=== PATIENT | female | born 1940 | race Caucasian/White ===

== ENCOUNTER 2019-10-30 06:00 | Day surgery (SDC) | payer MEDICARE, SELFPAY ==
[2019-10-28 13:56] VITALS: BMI 24.3
[2019-10-30 06:21] VITALS: BP 128/72; PULSE 73; RESP 18; TEMP 36.6; O2SAT 98
[2019-10-30] MEDS: sodium chloride 0.9% 1,000 ML 30 ML IV (06:24)
--- NOTE | 2019-10-30 06:33 | ANES.PREANE2 ---
Pre-Anesthetic Assessment Pre-Anesthetic Assessment: Height/Weight: Height 1.57 m Weight 60.328 kg Temp Pulse Resp BP Pulse Ox 98 F 73 18 128/72 98 10/30/19 06:21 10/30/19 06:21 10/30/19 06:21 10/30/19 06:21 10/30/19 06:21 Preop Diagnosis: colon polyps Proposed Procedure: Operation Date: 10/30/19 07:40 Proposed Procedures p Colonoscopy 46640 Z86.010(Not Applicable) - Ty Cain MD Familial anesthetic complications: no Was Beta Betty taken within 24 hours: N/A Last intake: Intake Last Liquid Date 09/29/19 Last Liquid Time 22:00 Last Solid Date 11/28/19 Last Solid Time 23:59 Last Intake: 12:00 Social: Social History: No alcohol and No tobacco Exam: Pre-Anes Outpt Exam: alert, oriented x 3, clear to auscultation bilaterally and regular rate & rhythm Airway: Submandibular: WNL Cervical ROM: WNL Dentition: False History/ROS: No significant history except as noted CV/HEM: CV/HEM: HTN Metabolic: Metabolic: Hyperlipidemia Anesthetic Plan: ASA status: 2 Anesthesia: Anesthesia Evaluation and MAC Risk of > 500 ml blood loss (7ml/kg in children): No Meds/Allergies Current Medications: Current Medications Generic Name Dose Route Start Last Admin Trade Name Freq PRN Reason Stop Dose Admin Sodium Chloride 1,000 mls @ 30 ml s/hr 10/30/19 06:30 10/30/19 06:24 Sodium Chloride 0.9% IV 30 mls/hr .Q24H OMI Administration PFSH Anesthesia PFSH: Social History Smoking and tobacco status: never smoked Alcohol intake: never History of recent travel: No Data Anesthesia Cardiac Studies: No Data to Display
--- NOTE | 2019-10-30 07:50 | P.HP_ITS ---
Same Day Surgery H&P Indication for Procedure/HPI DATE OF PROCEDURE: October 30, 2019 CHIEF COMPLAINT/INDICATIONFOR SURGICAL PROCEDURE: Family history of colon cancer, history of colon polyps PREOP DIAGNOSIS: colon polyps PLANNED PROCEDRUE: Operation Date: 10/30/19 07:40 Proposed Procedures p Colonoscopy 56647 Z86.010(Not Applicable) - Ty Cain MD Medications/Allergies* Home Medications Medication Instructions Recorded Confirmed Type amlodipine 2.5 mg tablet 1.25 mg PO BEDTIME 09/10/19 10/30/19 History levothyroxine 25 mcg tablet 25 mcg PO DAILY 09/10/19 10/29/19 History pravastatin 40 mg tablet 40 mg PO DAILY 09/10/19 10/30/19 History losartan 50 mg PO BEDTIME 10/29/19 10/29/19 History Allergies/Adverse Reactions Allergy/AdvReac Type Severity Reaction Status Date / Time No Known Allergies Allergy Verified 09/12/19 10:30 Current Medications: Generic Name Dose Route Start Last Admin Trade Name Freq PRN Reason Stop Dose Admin Sodium Chloride 1,000 mls @ 30 mls/hr 10/30/19 06:30 10/30/19 06:24 Sodium Chloride 0.9% IV 30 mls/hr .Q24H OMI Administration Pertinent History/Comorbid Conditions* Medical History (Updated 09/12/19 @ 10:58 by Ty Cain MD) Hiatal hernia History of colon polyps SESSILE POLYPS-2014 Hyperlipidemia Hypertension Surgical History (Updated 09/12/19 @ 10:58 by Ty Cain MD) History of arthroplasty of finger of left hand History of colonoscopy (~2014) History of esophagogastroduodenoscopy (EGD) (~2014) S/P lumpectomy, right breast Status post laser cataract surgery of both eyes Family History (Updated 09/12/19 @ 10:34 by CARLO Villegas) Denies family history of Anesthesia complication Bleeding disorder Social History Smoking and tobacco status: never smoked Alcohol intake: never History of recent travel: No Pertinent Exam Findings alert and oriented x 3 Recommendations Surgery/Procedure today Coding Level of Care Code Acute Special Delivery Messenger for Chg Annemarie
[2019-10-30 08:37] VITALS: BP 109/63; PULSE 64; RESP 16; TEMP 36.1; O2SAT 100
[2019-10-30 08:55] VITALS: BP 107/73; PULSE 73; RESP 18; O2SAT 99
== END 2019-10-30 09:09 | disposition home or self-care (01) ==
PROVIDERS: PCP Family Medicine; Visit Provider Surgery
PROC: 0DJD8ZZ Inspection of Lower Intestinal Tract, Via Natural or Artificial Opening Endoscopic (ICD-10-PCS; CPT 45378; principal; 2019-10-30 07:40)
DX: D12.3 Benign neoplasm of transverse colon (principal); K57.30 Diverticulosis of large intestine without perforation or abscess without bleeding; K64.8 Other hemorrhoids; Z86.010 Personal history of colon polyps; Z80.0 Family history of malignant neoplasm of digestive organs; I10 Essential (primary) hypertension; E78.5 Hyperlipidemia, unspecified
CPT/HCPCS: 45380; 12345; 88305; J2704; J7030

== ENCOUNTER 2019-11-14 13:03 | Outpatient (CLI) | payer MEDICARE, SELFPAY ==
--- NOTE | 2019-11-14 18:31 | ONC CON_ITS ---
Dr. Matta New Patient Note Patient: Anjelica Newell V Unit #: [id number]: 1940 Dicatated By: Jun Matta M.D.Date of Visit: November 14, 2019 Onc MED New Patient/Consult Referring Physician: Rayne Schrader N.P. Chief Complaint: Monoclonal gammopathy. History of Present Illness: This is an 79 year-old woman with IgG lambda monoclonal gammopathy. This patient has hypertension, hyperlipidemia, and hypothyroidism. She has been followed for thyroid nodules. She has been in good general health. She has been followed by Dr. Schreiber. Her routine laboratory studies from 07/24/2019 included a comprehensive metabolic profile which showed an elevated total protein of 8.2 g/dL with a calculated serum globulin which was also slightly elevated at 4.3 g/dL. The remainder of the studies were unremarkable. Her renal function was normal with BUN 13 and creatinine 0.85 mg/dL. The bilirubin and liver enzymes also were normal. The albumin was normal at 3.9 g/dL. Her CBC showed normal hemoglobin at 13.5 g with hematocrit 43%. The white blood cell count was 7100 and the platelet count was 304,000. Her further laboratory studies on 08/10/2019 included a protein electrophoresis which showed a restricted protein migration in the gamma region. Amino fixation showed a faint IgG lambda suggestive of a specific immune response or an early monoclonal protein. The serum free light chain assay showed free lambda light chain lambda in the high normal range at 2.59 mg/dL with free kappa light chain slightly elevated at 2.65mg/dL and normal kappa/lambda ratio at 1.02. She says she is feeling fine. She has normal energy and normal activity tolerance. ECOG score is 0. Her appetite is good and her weight is stable. She has no fever or night sweats. She sometimes has sinus drainage and she has occasional cough associated with it. She does not complain of shortness of breath or chest pain. She has some heartburn associated with hiatal hernia. She has no other GI or complaints. She recently had a negative screening colonoscopy. She has some arthritis pain in her knees, but not bad. She has no other joint or bone pain. She has occasional headache. She has restless leg syndrome, but she has no focal neurologic symptoms. Past Medical History: Her medical history includes hiatal hernia/GERD, hyperlipidemia, hypertension, hypothyroidism, and restless leg syndrome. She has been followed for thyroid nodules. Past Surgical History: She had a negative screening colonoscopy on 10/30/2019. Her other surgical/procedural history includes bilateral cataract excisions, excision of benign right breast cyst, endometrial sampling in 2019, and EGD and colonoscopy in 2014. Medications: amLODIPine Besylate 0.5 Tablet (of 2.5 mg) Oral daily, Levothyroxine Sodium 1 Tablet (of 25 mcg) Oral daily, Losartan Potassium 0.5 - 1.5 Tablet (of 50 mg) Oral daily, Pravastatin Sodium 1 Tablet (of 40 mg) Oral at bedtime Allergies: Cephalosporins Social History: Ms. Newell is and she is retired. She is a non-smoker. She does not drink alcohol. Family History: Father had heart disease and at age 75. Mother with an aneurysm at age 95. One brother has colon cancer, another has liver cancer, and another has lung cancer. A sister also has colon cancer and 1 sister with myelodysplasia. Review Of Symptoms: Constitutional - She is feeling fine. She has normal energy and normal activity tolerance. Appetite is good and weight is stable. No fever, chills, hot flashes, or night sweats. ECOG score is 0, Eyes - No change in vision, ENMT - No hearing loss or tinnitus. She sometimes has sinus drainage. No mouth sores. No sore throat or difficulty swallowing, Hematologic/Lymphatic - No abnormal bruising or bleeding, Respiratory - No shortness of breath. She has occasional cough, attributable to sinus drainage. No pleuritic pain or hemoptysis, Cardiovascular - No angina pain. No palpitations, Gastrointestinal - No nausea or vomiting. She has heartburn associated with a hiatal hernia. She manages it adequately with Tums. No diarrhea or constipation. No blood in the stool or black stools. She recently had a negative screening colonoscopy, Genitourinary (F) - No dysuria or hematuria. No urinary frequency, but she reports having nocturia x 3. No urgency or incontinence, Musculoskeletal - She has some arthritis in her knees, but not bad. She has no other joint or bone pain, Integumentary - No skin rash or other skin problems, Neurologic - She occasionally has headache. No dizziness. No numbness/paresthesias or other focal neurologic symptoms, Psychiatric - No anxiety or depression. She has restless leg syndrome, and she has some difficulty sleeping. Vital Signs: Performed on November 14, 2019 13:36: 0, 24.36, 1.61 sq.m, 62.00 in, 98 %, 72 /min, 18 /min, 147/58 mm(hg) (HIGH), 98.8 F, and 133.2 lbs (HIGH). Physical Examination: Constitutional - She appears to be in good general health, Eyes - Sclerae nonicteric. Conjunctivae clear, ENMT - No lesions noted in the oral cavity, Neck - No mass or thyromegaly, Hematologic/Lymphatic - No cervical, clavicular, or axillary adenopathy, Respiratory - Lungs are clear with good air movement bilaterally, Cardiovascular - Heart rhythm is regular. There is no murmur, gallop, or rub noted, Abdomen - Soft and non-tender. Liver and spleen are not enlarged. There is no abdominal mass or ascites noted and there is no inguinal adenopathy, Back/Spine - No spine or CVA tenderness noted, Extremities - No edema. Posterior tibial pulses are palpable bilaterally, Integumentary - No rashes. No suspicious skin lesions noted, Neurologic - No focal neurologic deficits noted. Impression: 1. Patient with low level IgG lambda monoclonal protein. This appears to have been too small to quantitate. 2. She does not appear to be symptomatic with it. Her other medical illnesses include: 3. Hypertension. 4. Hyperlipidemia. 5. Hypothyroidism. 6. Hiatal hernia/GERD. 7. Restless leg syndrome. 8. She has been followed for thyroid nodules. Plan: The laboratory findings and clinical implications were reviewed with the patient. She appears to have a very low level IgG lambda monoclonal gammopathy. The clinical significance is uncertain. She does not appear to be symptomatic with it. She will be scheduled to come in next week for additional laboratory studies to include CBC, comprehensive metabolic profile, sed rate, serum protein electrophoresis with immunofixation, and quantitative immunoglobulin levels. I also will have her bring in a 24-hour urine for monoclonal protein excretion. If she is confirmed to have monoclonal gammopathy, she will then be scheduled for a skeletal survey. She will have further evaluation as indicated. However, in the setting of an asymptomatic low level monoclonal gammopathy, she will most likely just be followed with observation/expectant management. Signed By: Jun Matta M.D. <<Signature on File>>
== END 2019-11-14 13:04 | disposition home or self-care (01) ==
LOC: ONCMED 13:07
PROVIDERS: PCP Family Medicine; Referring Provider Nurse Practitioner Family; Visit Provider Internal Medicine Medical Oncology
DX: D47.2 Monoclonal gammopathy (principal); I10 Essential (primary) hypertension; E78.5 Hyperlipidemia, unspecified; E03.9 Hypothyroidism, unspecified; K44.9 Diaphragmatic hernia without obstruction or gangrene; K21.9 Gastro-esophageal reflux disease without esophagitis; G25.81 Restless legs syndrome; E04.2 Nontoxic multinodular goiter
CPT/HCPCS: 99204

== ENCOUNTER 2019-11-18 08:40 | Outpatient (CLI) | payer MEDICARE, SELFPAY ==
[2019-11-18 09:10] LABS: Basophils % 0.7 %; Eosinophils % 0.4 %; Hematocrit 36.6 % (37.0-47.0); Hemoglobin 11.7 g/dL (11.5-15.3); Lymphocytes # 1.3 10^3/uL (0.8-4.8); Lymphocytes % 23.6 %; Mean Corpuscular Hemoglobin 31.3 pg (28.0-34.0); Mean Corpuscular Volume 97.9 fL (81-99); Mean Platelet Volume 9.7 fL (7.4-10.4); Monocytes # 0.3 10^3/uL (0.2-0.9); Monocytes % 4.8 %; Neutrophils # 3.9 10^3/uL (1.8-7.7); Neutrophils % 70.3 %; Nucleated Red Blood Cells % 0 %; Platelet Count 244 10^3/cmm (130-400); Red Blood Count 3.74 10^6/uL (4.1-5.3); Red Cell Distribution Width 13.3 % (12.1-15.1); White Blood Count 5.5 10^3/uL (4.0-10.0)
[2019-11-18 09:26] LABS: Alanine Aminotransferase 14 U/L (0-33); Albumin Level 4.3 g/dL (3.5-5.2); Alkaline Phosphatase 48 IU/L (35-105); Anion Gap 14.5 (5-19); Aspartate Amino Transferase 19 U/L (0-32); Blood Urea Nitrogen 11 mg/dL (8-23); Calcium 9.3 mg/dL (8.5-10.5); Carbon Dioxide 25 mmol/L (22-29); Chloride 105 mmol/L (98-107); Globulin 2.5 g/dL (1.3-4.6); Glucose 119 mg/dL (65-115); Immunoglobulin IGA 229 mg/dL (70-400); Immunoglobulin IGG 955 mg/dL (700-1600); Immunoglobulin IGM 90 mg/dL (40-230); Osmolality Calculated 287 mOsm/kg (285-295); Potassium 4.5 mmol/L (3.5-5.1); Sodium 140 mmol/L (136-145); Total Bilirubin 0.4 mg/dL (0.15-1.2); Total Protein 6.8 g/dL (6.6-8.7)
[2019-11-18 10:28] LABS: Erythrocyte Sedimentation Rate 22 mm/hr (0-15)
[2019-11-19 10:57] LABS: PROTEIN, TOTAL 6.7 g/dL (6.1-8.1)
[2019-11-19 14:40] LABS: ABNORMAL PROTEIN BAND 1 0.1 g/dL (NONE DETECTED); ALBUMIN 4.1 g/dL (3.8-4.8); ALPHA 1 GLOBULIN 0.2 g/dL (0.2-0.3); ALPHA 2 GLOBULIN 0.7 g/dL (0.5-0.9); BETA 1 GLOBULIN 0.5 g/dL (0.4-0.6); BETA 2 GLOBULIN 0.4 g/dL (0.2-0.5); GAMMA GLOBULIN 0.9 g/dL (0.8-1.7)
[2019-11-19 15:37] LABS: CREATININE, 24 HOUR URINE 0.81 g/24 h (0.50-2.15); PROTEIN, TOTAL, 24 HR UR 96 mg/24 h (<150); Protein/Creatinine Ratio 0.119 (< OR = 0.114); Protein/Creatinine Ratio 119 mg/g creat (< OR = 114)
[2019-11-21 12:21] LABS: ALPHA-1-GLOBULINS 0 %; ALPHA-2-GLOBULINS 0 %; BETA GLOBULINS 0 %; GAMMA GLOBULINS 0 %
[2020-01-07 11:22] LABS: COLLECTION DURATION 24; URINE VOLUME 1925
== END 2019-11-18 08:41 | disposition home or self-care (01) ==
LOC: ONCMED 08:43
PROVIDERS: PCP Family Medicine; Visit Provider Internal Medicine Medical Oncology
DX: D47.2 Monoclonal gammopathy (principal)
CPT/HCPCS: 80053; 82040; 82784; 84155; 84165; 85025; 85651

== ENCOUNTER 2020-07-23 13:13 | Outpatient (CLI) | payer MEDICARE, SELFPAY ==
--- NOTE | 2020-07-23 13:24 | MM_ITS ---
WS: [id number] BILATERAL DIGITAL SCREENING MAMMOGRAPHY WITH CAD CLINICAL INFORMATION: SCREENING HISTORY: Screening mammogram. No current complaints. COMPARISON: TECHNIQUE: Bilateral CC and MLO views. FINDINGS: The breasts are composed of heterogeneous fibroglandular density tissue, which can limit the detectio n of small underlying mass lesions. No suspicious mass, asymmetry, calcifications, or architectural d istortion. No evidence of malignancy. Punctate calcifications. Vascular calcification. MM/[id number] IMPRESSION: BI-RADS: 2-Benign FOLLOW UP: 1 Year Follow-up Recommend return to annual screening mammography.
== END 2020-07-23 13:14 | disposition home or self-care (01) ==
LOC: RADSHAW 13:21
PROVIDERS: PCP Family Medicine; Visit Provider Nurse Practitioner Family
DX: Z12.31 Encounter for screening mammogram for malignant neoplasm of breast (principal)
CPT/HCPCS: 77067

== ENCOUNTER 2020-12-08 13:33 | Outpatient (CLI) | payer MEDICARE, SELFPAY ==
--- NOTE | 2020-12-08 13:41 | XR_ITS ---
WS: [id number] DEXA (DUAL ENERGY X-RAY ABSORPTIOMETRY) Bone mineral density was performed using a [employer] machine. HISTORY: AGE-RELATED OSTEOPOROSIS WITHOUT CURRENT PATHOLOGICAL FRACTURE COMPARISON: 03/01/2018 Lumbar spine BMD (L1-L4): 1.173 g/cm2 T score: -0.1 Z score: 1.9 Total hip BMD: Left: 1.042 g/cm2. T score: 0.3 Z score: 2.4 Right: 0.980 g/cm2. T score: -0.2 Z score: 1.9 10 year probability of a major osteoporotic fracture is 20%. Compared to the prior study from 03/01/2018. Lumbar spine bone mineral density has increased by 2.6%. Bilateral hips bone mineral density has increased by 2.6%. XR/XR DEXA axial skeleton* [id number] IMPRESSION: NORMAL BONE MINERAL DENSITY based upon the WHO classification for females. Sign ificant increase in bone mineral density since the prior study.
== END 2020-12-08 13:34 | disposition home or self-care (01) ==
PROVIDERS: PCP Family Medicine; Visit Provider Nurse Practitioner Family
DX: M81.0 Age-related osteoporosis without current pathological fracture (principal)
CPT/HCPCS: 77080

== ENCOUNTER 2021-10-31 07:09 | Outpatient (CLI) | payer MEDICARE, SELFPAY ==
--- NOTE | 2021-10-31 07:21 | MM_ITS ---
WS: [id number] SCREENING TOMOSYNTHESIS DIGITAL MAMMOGRAM WITH CAD HISTORY: Screening exam. COMPARISON: 04/13/2016, 03/01/2018 and 07/23/2020 Bilateral CC and MLO views submitted. Computer aided detection analyzed. Breast composition: The breasts are heterogeneously dense, which may obscure small masses. Round mass middle depth RIGHT breast near the 3:00 axis measures 6 mm. There is an associated calcification. Th is mass may have been present on prior studies but better visualized today due to tomosynthesis. The calcification has been present and does appear benign. MM/[place] [id number] IMPRESSION: BI-RADS: 0-Incomplete: Need additional imaging evaluation FOLLOW UP: Need Additional Imaging RIGHT breast ultrasound recommended. 6 mm mass with an associated calcification RIGHT breast 3:00.
== END 2021-10-31 07:10 | disposition home or self-care (01) ==
LOC: RADSHAW 07:11
PROVIDERS: PCP Nurse Practitioner Family; Visit Provider Nurse Practitioner Family
DX: Z12.31 Encounter for screening mammogram for malignant neoplasm of breast (principal)
CPT/HCPCS: 77063; 77067

== ENCOUNTER 2021-11-08 13:05 | Outpatient (CLI) | payer MEDICARE, SELFPAY ==
--- NOTE | 2021-11-08 13:18 | US_ITS ---
WS: [id number] ULTRASOUND RIGHT BREAST HISTORY: ABNORMAL MAMMOGRAM OF R BREAST COMPARISON: 07/23/2020 TECHNIQUE: 2-D and Doppler. At 4:00, 1 cm from the nipple is a hypoechoic mass with a single punctate calcification measuring 6 x 6 x 4 mm. This corresponds in size and location and appearance to the mammographic abnormality. No i ncreased vascularity. There are 2 adjacent cysts at 6:00 in the subareolar location. US/US breast RT limited* [id number] IMPRESSION: BI-RADS: 3-Probably Benign FOLLOW-UP: 6 Month Follow-up Recommend 6 month follow-up of probably benign 6 mm mass at 4:00, 1 cm from the nipple.
== END 2021-11-08 13:06 | disposition home or self-care (01) ==
PROVIDERS: PCP Nurse Practitioner Family; Visit Provider Nurse Practitioner Family
DX: R92.8 Other abnormal and inconclusive findings on diagnostic imaging of breast (principal); N63.14 Unspecified lump in the right breast, lower inner quadrant
CPT/HCPCS: 76642

== ENCOUNTER → 2023-01-09 08:37 | Outpatient (BNVA) | payer MEDICARE, SELFPAY | PROVIDERS: PCP Electrodiagnostic Medicine; Visit Provider Nurse Practitioner Family | DX: C44.311 Basal cell carcinoma of skin of nose (principal); D22.5 Melanocytic nevi of trunk; L85.3 Xerosis cutis; D69.2 Other nonthrombocytopenic purpura; L81.4 Other melanin hyperpigmentation; L57.8 Other skin changes due to chronic exposure to nonionizing radiation | CPT/HCPCS: 11102; 99213 ==

== ENCOUNTER → 2023-01-30 07:55 | Outpatient (BNVA) | payer MEDICARE, SELFPAY | PROVIDERS: PCP Electrodiagnostic Medicine; Visit Provider Dermatology | DX: C44.311 Basal cell carcinoma of skin of nose (principal) | CPT/HCPCS: 17311 ==

== ENCOUNTER → 2023-02-02 11:23 | Outpatient (BNVA) | payer MEDICARE, SELFPAY | PROVIDERS: PCP Electrodiagnostic Medicine; Visit Provider Dermatology | DX: C44.311 Basal cell carcinoma of skin of nose (principal) | CPT/HCPCS: 15260 ==

== ENCOUNTER → 2023-02-12 15:29 | Outpatient (BNVA) | payer MEDICARE, SELFPAY | PROVIDERS: PCP Electrodiagnostic Medicine; Visit Provider Dermatology | DX: Z48.02 Encounter for removal of sutures (principal) | CPT/HCPCS: 99212 ==

== ENCOUNTER → 2023-03-08 14:26 | Outpatient (BNVA) | payer MEDICARE, SELFPAY | PROVIDERS: PCP Electrodiagnostic Medicine; Visit Provider Dermatology | DX: L57.8 Other skin changes due to chronic exposure to nonionizing radiation (principal); Z85.828 Personal history of other malignant neoplasm of skin; Z48.817 Encounter for surgical aftercare following surgery on the skin and subcutaneous tissue; L81.4 Other melanin hyperpigmentation | CPT/HCPCS: 99213 ==

== ENCOUNTER 2023-03-29 16:10 | Emergency (ER) | payer MEDICARE, SELFPAY ==
[2023-03-29 16:15] VITALS: BP 185/72; PULSE 84; RESP 16; TEMP 36.6; O2SAT 97
--- NOTE | 2023-03-29 17:25 | XRR_ITS ---
PROCEDURE INFORMATION: Exam: XR Chest Exam date and time: 03/29/2023 5:46 PM Age: 82 years old Clinical indication: Cough; Additional info: Dyspnea/cough TECHNIQUE: Imaging protocol: Radiologic exam of the chest. Views: 1 view. COMPARISON: CR XR chest 1V [id number] 12/24/2017 11:25 AM FINDINGS: Lungs: Lungs are clear bilaterally. Pleural spaces: No pleural effusion. No pneumothorax. Heart/Mediastinum: Stable moderate enlargement of the cardiac silhouette. Mediastinal contours are unremarkable. Vasculature: Stable vascular calcifications in the aorta. Bones/joints: Unremarkable for age. XR/XR chest 1V portable [id number] IMPRESSION: 1. No acute cardiopulmonary process. 2. Incidental/nonacute findings are listed in the report.
--- NOTE | 2023-03-29 17:26 | ED_ITS ---
HPI - Headache General: Chief Complaint: Headache Stated Complaint: high bp Time Seen by Provider: 03/29/23 16:49 Source: patient Mode of arrival: ambulatory History of Present Illness: 82-year-old female presents emergency room complaining of elevated blood pressure and headache. She took her blood pressure medications last night she usually takes losartan. She also takes amlodipine she will he takes that occasionally though she tells me on her chart it is listed as 1.25 at at bedtime she took 1 pill last night and 1 this morning. Blood pressure was as high as 200 systolic she states at home. Blood pressure initially on arrival here is 180 5 repeat was 139 systolic. She denies difficulty speech swallowing vision gait or balance. No facial weakness or focal neurologic deficits she denies any chest pain. No recent medication changes. MD elicited complaint: headache Exacerbating factors: none Relieving factors: nothing Associated symptoms: Deny chest pain, confusion, cough, diaphoresis, eye pain, eye redness, fever(s), lightheadedness, loss of vision, malaise, nausea, neck stiffness, numbness, paresthesias, photophobia, pre-syncope, rash, seizures, short of breath, sound sensitivity, syncope, vomiting or weakness Treatments prior to arrival: none Review of Systems Const: Denies: fever(s), chills, fatigue, malaise or diaphoresis ENMT: Denies: throat pain, ear or mastoid pain, nasal discharge or nasal congestion Card: Denies: chest pain, lightheadedness, syncope or pre-syncope Resp: Denies: dyspnea, productive cough or non-productive cough GI: Denies: abdominal pain, nausea or vomiting : Denies: flank pain, difficulty voiding, dysuria, urinary frequency or urinary urgency Musc: Denies: neck pain or back pain Skin/Breast: Denies: rash Neuro: Reports: headache(s); Denies: confusion PFSH ED PFSH: Medical History Hiatal hernia History of colon polyps 2020: Tubular adenoma History of nonmelanoma skin cancer Hyperlipidemia Hypertension Surgical History History of arthroplasty of finger of left hand History of colonoscopy (10/30/19) Diverticulosis and 2 polyps transverse colon History of esophagogastroduodenoscopy (EGD) (~2014) S/P lumpectomy, right breast Status post laser cataract surgery of both eyes Family History Denies family history of Anesthesia complication Bleeding disorder Social History Smoking and tobacco status: never smoked Alcohol intake: never Substance/Drug Use: never Physical Exam 2 Const: GENERAL APPEARANCE: cooperative and comfortable ORIENTATION/CONSCIOUSNESS: Yes awake, Yes oriented to person, Yes oriented to place and Yes oriented to time HENMT: COMMON NORMALS: normocephalic, atraumatic and hearing grossly normal bilaterally HEAD & SCALP: normocephalic and atraumatic Eye: COMMON NORMALS: Equal, round and reactive pupils present, EOMs intact bilaterally, conjunctivae normal and no scleral icterus CONJUNCTIVA: Yes conjunctivae normal PUPIL: Yes Equal, round and reactive pupils present D IRECT OPHTHALMOSCOPY: No photophobia Resp: COMMON NORMALS: normal respiratory effort, No retractions, No use of accessory muscles and clear to auscultation bilaterally AUSCULTATION: clear to auscultation bilaterally Cardio: COMMON NORMALS: regular rate, regular rhythm and No murmurs present (Cardio) RATE: regular rate RHYTHM: regular rhythm GI: COMMON NORMALS: Soft to palpation and No hepatosplenomegaly present AUSCULTATION: Yes normoactive bowel sounds PALPATION: Yes Soft to palpation, No Tenderness to palpation present (GI), No Guarding due to palpation present (GI) and Yes No hepatosplenomegaly present Extremity: COMMON NORMALS: normal to inspection, capillary refill normal, no clubbing, cyanosis or edema, no calf tenderness and no pedal edema Neuro: SENSORIUM/ORIENTATION: Yes oriented to person, Yes oriented to place and Yes oriented to time Skin: COMMON NORMALS: no rashes or lesions noted GENERAL SKIN EXAM: no rashes or lesions noted Course Vital Signs: Vital signs: Vital Signs Temperature 97.9 F 03/29/23 16:15 Pulse Rate 69 03/29/23 17:40 Respiratory Rate 18 03/29/23 17:40 Blood Pressure 171/77 03/29/23 17:40 Pulse Oximetry 94 03/29/23 17:40 Oxygen Delivery Me thod Room Air 03/29/23 17:40 MDM - Headache Medical Decision Making Labs and EKG unremarkable. Chest x-ray no significant or acute changes. Blood pressure improved. Add metoprolol and increase amlodipine follow-up with primary care within the next week to reevaluate. Medical Records I reviewed the patient's medical records. Lab Data I reviewed the patient's lab results. 03/29/23 17:56 03/29/23 17:56 Laboratory Results WBC 7.27 10^3/uL (3.29-11.43) 03/29/23 17:56 RBC 4.23 10^6/uL (3.85-5.65) 03/29/23 17:56 Hgb 13.00 g/dL (11.27-16.99) 03/29/23 17:56 Hct 39.2 % (36-47) 03/29/23 17:56 MCV 92.7 fl (85-98) 03/29/23 17:56 MCH 30.7 pg (27-33) 03/29/23 17:56 MCHC 33.2 g/dL (30-55) 03/29/23 17:56 RDW 13.9 % (12.1-15.1) 03/29/23 17:56 Plt Count 259 10^3/cmm (157-399) 03/29/23 17:56 MPV 9.9 fL (7.4-10.4) 03/29/23 17:56 Neut % (Auto) 67.7 % 03/29/23 17:56 Lymph % (Auto) 26.0 % 03/29/23 17:56 Carlton % (Auto) 5.0 % 03/29/23 17:56 Eos % (Auto) 0.4 % 03/29/23 17:56 Baso % (Auto) 0.8 % 03/29/23 17:56 Neut # (Auto) 4.92 10^3/uL (1.8-7.7) 03/29/23 17:56 Lymph # (Auto) 1.9 10^3/uL (0.8-4.8) 03/29/23 17:56 Carlton # (Auto) 0.4 10^3/uL (0.2-0.9) 03/29/23 17:56 Eos # (Auto) 0.0 10^3/uL (0.0-0.8) 03/29/23 17:56 Baso # (Auto) 0.1 10^3/uL (0.0-0.1) 03/29/23 17:56 Nucleated RBC % (auto) 0 % 03/29/23 17:56 Nucleated RBCs # 0.0 /100WBC 03/29/23 17:56 XR interpretation done by ED provider, pending radiology final review Discharge Plan Discharge Patient Disposition: Home Clinical Impression: Headache, HTN (hypertension) Condition: Stable Prescriptions: New amlodipine 5 mg tablet 5 mg PO DAILY Qty: 30 0RF Toprol XL 25 mg tablet extended release 24 hr 12.5 mg PO DAILY Qty: 15 0RF Discontinued amlodipine 2.5 mg tablet 1.25 mg PO BEDTIME No Action pravastatin 40 mg tablet 40 mg PO DAILY levothyroxine [Levoxyl] 25 mcg tablet 25 mcg PO DAILY losartan 50 mg Tablet 50 mg PO BEDTIME Discharge Orders: Discharge ED (Routine); Ordered 03/29/23 Ordered By: Ochoa Adams Referrals: Gonzalo Jeter DO [Primary Care Provider] - Discharge Diet: Usual diet Discharge Activity: Increase activity as tolerated Patient Instructions: Opioid Safety, Pain Management Activity Restrictions/Additional Instructions: Continue the losartan daily. Add amlodipine 5 mg daily and metoprolol 12.5 mg daily follow-up with your doctor within the week. Coding Level of Care Code ED Public Relations Coordinator for Destini Sharpe
[2023-03-29 17:40] VITALS: BP 171/77; PULSE 69; RESP 18; O2SAT 94
[2023-03-29] MEDS: metoprolol tartrate 25 mg Tablet 12.5 MG PO (17:45)
[2023-03-29 18:03] LABS: Basophils # 0.1 10^3/uL (0.0-0.1); Basophils % 0.8 %; Eosinophils % 0.4 %; Hematocrit 39.2 % (36-47); Lymphocytes # 1.9 10^3/uL (0.8-4.8); Mean Corpuscular HGB Conc 33.2 g/dL (30-55); Mean Corpuscular Hemoglobin 30.7 pg (27-33); Mean Corpuscular Volume 92.7 fl (85-98); Mean Platelet Volume 9.9 fL (7.4-10.4); Monocytes # 0.4 10^3/uL (0.2-0.9); Neutrophils # 4.92 10^3/uL (1.8-7.7); Neutrophils % 67.7 %; Nucleated Red Blood Cells % 0 %; Platelet Count 259 10^3/cmm (157-399); Red Blood Count 4.23 10^6/uL (3.85-5.65); Red Cell Distribution Width 13.9 % (12.1-15.1); White Blood Count 7.27 10^3/uL (3.29-11.43)
[2023-03-29 18:26] LABS: Anion Gap 13.4 (5-19); Blood Urea Nitrogen 9 mg/dL (8-23); Calcium 9.7 mg/dL (8.5-10.5); Carbon Dioxide 25 mmol/L (22-29); Chloride 104 mmol/L (98-107); Glucose 99 mg/dL (65-115); Osmolality Calculated 285 mOsm/kg (285-295); Potassium 4.4 mmol/L (3.5-5.1); Sodium 138 mmol/L (136-145)
== END 2023-03-29 18:17 | disposition home or self-care (01) ==
PROVIDERS: Emergency Provider Family Medicine; PCP Electrodiagnostic Medicine
DX: R51.9 Headache, unspecified (principal); I10 Essential (primary) hypertension; E78.5 Hyperlipidemia, unspecified
CPT/HCPCS: 36415; 71045; 80048; 85025; 99284

== ENCOUNTER → 2023-06-07 14:13 | Outpatient (BNVA) | payer MEDICARE, SELFPAY | PROVIDERS: PCP Electrodiagnostic Medicine; Visit Provider Dermatology | DX: L57.0 Actinic keratosis (principal); L57.8 Other skin changes due to chronic exposure to nonionizing radiation; L82.1 Other seborrheic keratosis; Z85.828 Personal history of other malignant neoplasm of skin; D22.5 Melanocytic nevi of trunk | CPT/HCPCS: 17000; 99213 ==

== ENCOUNTER 2023-12-10 08:12 | Outpatient (CLI) | payer MEDICARE, SELFPAY ==
--- NOTE | 2023-12-10 08:17 | USCV_ITS ---
Anjelica Newell Age: 83 Gender: F : 1940 Exam Date: 12/10/2023 08:43 Ordering Phys: Gonzalo Jeter DO Technologist: Exam Location: [facility] [place]ication: sob murmur BP: 140 / 80 HR: 52 Rhythm: Sinus Technical Quality: Adequate MEASUREMENTS (Male / Female) Normal Values 2D ECHO LV Diastolic Diameter PLAX 3.7 cm 4.2 - 5.9 / 3.9 - 5.3 cm IVS Diastolic Thickness 1.0 cm 0.6 - 1.0 / 0.6 - 0.9 cm IVS Systolic Thickness 1.6 cm LVPW Diastolic Thickness 1.0 cm 0.6 - 1.0 / 0.6 - 0.9 cm LVPW Systolic Thickness 1.9 cm LVOT Diameter 2.1 cm LV Ejection Fraction 2D Teich 66.4 % LV Ejection Fraction MOD 2C 60.4 % LV Ejection Fraction 2C AL 58.9 % LA Diameter 2.6 cm RA Systolic Volume 4C AL 20.6 ml RA Systolic Volume 4C MOD 19.5 ml LA Sys Volume AL 43.3 cm cubed LA Sys Volume Index AL 26.8 cm cubed/m squared Aorta at Sinotubular Diameter 2.6 cm IVC Diameter 1.6 cm M-MODE LA Ao Ratio MM 1.2 AV Cusp Separation MM 2.1 cm DOPPLER AV Peak Velocity 169.0 cm/s LVOT Peak Velocity 102.0 cm/s AV Area Cont Eq vti 2.5 cm squared AV Area Cont Eq pk 2.0 cm squared MV Peak Velocity 108.0 cm/s MV Area PHT 2.8 cm squared Mitral E to A Ratio 1.0 TR Peak Velocity 286.0 cm/s TR Peak Gradient 32.7 mmHg TV Peak E Velocity 65.0 cm/s FINDINGS Left Ventricle Normal left ventricular cavity size. Normal left ventricular systolic function. No regional wall motion abnormalities. Left ventricular ejection fraction is estimated at 60 %. Grade I/IV diastolic dysfunction (abnormal relaxation filling pattern), normal to mildly elevated filling pressures. Right Ventricle The right ventricle is normal in size and function. Right Atrium The right atrium is normal in size. Left Atrium Moderately increased left atrial size. Mitral Valve Structurally normal mitral valve. No mitral valve stenosis. Trace mitral valve regurgitation. Aortic Valve Structurally normal aortic valve without significant sclerosis or stenosis. There is no aortic regurgitation. Tricuspid Valve Structurally normal tricuspid valve. Mild tricuspid valve regurgitation. Pulmonic Valve Structurally normal pulmonic valve without significant stenosis. There is no pulmonic regurgitation. Pericardium Normal pericardium without effusion. Aorta Normal ascending aorta dimension. IVC The inferior vena cava appears normal. CONCLUSIONS 1-Normal left ventricular cavity size. Normal left ventricular systolic function. No regional wall motion abnormalities. Left ventricular ejection fraction is estimated at 60 %. Grade I/IV diastolic dysfunction (abnormal relaxation filling pattern), normal to mildly elevated filling pressures. 2-Structurally normal tricuspid valve. Mild tricuspid valve regurgitation. 3-There is no pericardial effusion. 4-Right atrial pressure is around 5 mm of mercury. 5-There is no pericardial effusion. Andrey Casas MD (Electronically Signed) Final Date: 10 December 2023 20:11 S
== END 2023-12-10 08:13 | disposition home or self-care (01) ==
LOC: RAD 08:12
PROVIDERS: PCP Electrodiagnostic Medicine; Visit Provider Electrodiagnostic Medicine
DX: R01.1 Cardiac murmur, unspecified (principal); I50.30 Unspecified diastolic (congestive) heart failure
CPT/HCPCS: 93306

== ENCOUNTER 2024-08-18 20:31 | Observation (INO) | payer MEDICARE, SELFPAY ==
[2024-08-18 20:44] VITALS: BP 174/81; PULSE 76; RESP 16; TEMP 36.6; O2SAT 98
--- NOTE | 2024-08-18 20:52 | ECG_ITS ---
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
--- NOTE | 2024-08-18 20:55 | XRR_ITS ---
PROCEDURE INFORMATION: Exam: XR Chest Exam date and time: 08/18/2024 8:58 PM Age: 84 years old Clinical indication: Other: HTN; Additional info: Hypertension TECHNIQUE: Imaging protocol: Radiologic exam of the chest. Views: 1 view. COMPARISON: CR XR chest 1V portable [id number] 03/29/2023 5:46 PM FINDINGS: Lungs: Left lower lobe atelectasis. Pleural spaces: No pleural effusion or pneumothorax noted. Heart/Mediastinum: There is no cardiomegaly. Bones/joints: There is a minimally displaced fracture of the surgical neck of the left humeral head. There is no dislocation. Intraperitoneal space: There is no free intraperitoneal gas. XR/XR chest 1V portable [id number] IMPRESSION: 1. Minimally displaced fracture of the surgical neck of the left humeral head. No dislocation. 2. Left basal atelectasis.
--- NOTE | 2024-08-18 20:55 | CTR_ITS ---
PROCEDURE INFORMATION: Exam: CT Head Without Contrast Exam date and time: 08/18/2024 10:03 PM Age: 84 years old Clinical indication: Other: HTN with vision changes; Additional info: HTN, visual changes TECHNIQUE: Imaging protocol: Computed tomography of the head without contrast. Radiation optimization: All CT scans at this facility use at least one of these dose optimization techniques: automated exposure control; mA and/or kV adjustment per patient size (includes targeted exams where dose is matched to clinical indication); or iterative reconstruction. COMPARISON: l spine RADIATION DOSE METRICS: Total DLP (mGy-cm): 983.68 FINDINGS: Brain: No hemorrhage. Diffuse periventricular white matter disease indicating small vessel disease changes. No mass effect. No collections. Age related volume loss. 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 Cerebral ventricles: No ventriculomegaly. Paranasal sinuses: No significant air-fluid levels noted in the visualized sinuses. Mastoid air cells: Mastoid air cells are aerated with no effusions. Bones: No acute osseous abnormality. Soft tissues: Unremarkable. CT/CT head wo con* [id number] IMPRESSION: No acute intracranial abnormality.
[2024-08-18 21:52] LABS: Basophils # 0.1 10^3/uL (0.0-0.1); Basophils % 0.6 %; Eosinophils % 0.3 %; Hematocrit 37.1 % (36-47); Lymphocytes # 2.2 10^3/uL (0.8-4.8); Lymphocytes % 22.2 %; Mean Corpuscular HGB Conc 32.3 g/dL (30-55); Mean Corpuscular Hemoglobin 30.1 pg (27-33); Mean Platelet Volume 9.7 fL (7.4-10.4); Monocytes # 0.5 10^3/uL (0.2-0.9); Monocytes % 4.7 %; Neutrophils # 7.17 10^3/uL (1.8-7.7); Neutrophils % 71.9 %; Nucleated Red Blood Cells % 0 %; Platelet Count 229 10^3/cmm (157-399); Red Blood Count 3.99 10^6/uL (3.85-5.65); Red Cell Distribution Width 13.6 % (12.1-15.1); White Blood Count 9.97 10^3/uL (3.29-11.43)
[2024-08-18 22:13] LABS: Troponin(5th) Baseline 20 ng/L (0-10)
[2024-08-18 22:21] LABS: Alanine Aminotransferase 21 U/L (0-33); Albumin Level 4.2 g/dL (3.5-5.2); Alkaline Phosphatase 60 U/L (35-105); Aspartate Amino Transferase 25 U/L (0-32); Blood Urea Nitrogen 18 mg/dL (8-23); Calcium 9.5 mg/dL (8.5-10.5); Carbon Dioxide 21 mmol/L (22-29); Globulin 3.2 g/dL (1.3-4.6); Glucose 144 mg/dL (65-115); NT Pro B Type Natriuretic Pept 101 pg/mL (0-450); Total Bilirubin 0.4 mg/dL (0.15-1.2); Total Protein 7.4 g/dL (6.6-8.7)
[2024-08-18 22:54] LABS: Anion Gap 18.4 (5-19); Chloride 99 mmol/L (98-107); Osmolality Calculated 282 mOsm/kg (285-295); Potassium 4.4 mmol/L (3.5-5.1); Sodium 134 mmol/L (136-145)
[2024-08-19] VITALS (19 sets, daily range): BP systolic 130–165; BP diastolic 69–90; PULSE 53–93; RESP 12–65; TEMP 36.7; O2SAT 97–100
--- NOTE | 2024-08-19 00:44 | W.ED.GENADLT ---
HPI - General Adult General: Chief complaint: General Medical Stated complaint: Very High BP Time Seen by Provider: 08/19/24 00:41 History of Present Illness: 84-year-old female with a history of hypertension and hypothyroidism who presents to the emergency room with high blood pressure. She says she had checked it at home because she was not feeling right and it was over 200 systolic. She waited several hours and took some extra blood pressure medications and it was still up so she came to the emergency room. She says she just did not really feel right. Not really any chest pain. No nausea or vomiting. No altered mental status. She does say that her vision is been different in her left eye for 2 to 3 days now. Currently no gross visual field deficits. No neurologic deficits. No fevers. No cough Related Data Home Medications ?Medication ?Instructions ?Recorded ?Confirmed levothyroxine 25 mcg tablet 25 mcg PO DAILY 09/10/19 07/11/22 (Levoxyl) pravastatin 40 mg tablet 40 mg PO DAILY 09/10/19 07/11/22 losartan 50 mg tablet 50 mg PO BEDTIME 10/29/19 07/11/22 Previous Rx's ?Medication ?Instructions ?Recorded amlodipine 5 mg tablet 5 mg PO DAILY #30 tabs 03/29/23 metoprolol succinate 25 mg 12.5 mg (1/2 x 25 mg) PO DAILY #15 03/29/23 tablet,extended release 24 hr tabs (Toprol XL) Allergies Allergy/AdvReac Type Severity Reaction Status Date / Time No Known Allergies Allergy Verified 08/18/24 20:50 Review of Systems Narrative: Constitutional symptoms: Negative except as documented in HPI. Skin symptoms: Negative except as documented in HPI. Eye symptoms: Negative except as documented in HPI. ENMT symptoms: Negative except as documented in HPI. Respiratory symptoms: Negative except as documented in HPI. Cardiovascular symptoms: Negative except as documented in HPI. Gastrointestinal symptoms: Negative except as documented in HPI. Genitourinary symptoms: Negative except as documented in HPI. Musculoskeletal symptoms: Negative except as documented in HPI. Neurologic symptoms: Negative except as documented in HPI. Psychiatric symptoms: Negative except as documented in HPI. Endocrine symptoms: Negative except as documented in HPI. PFS ED PFSH: Medical History Hiatal hernia History of colon polyps 2020: Tubular adenoma History of nonmelanoma skin cancer Hyperlipidemia Hypertension Surgical History History of arthroplasty of finger of left hand History of colonoscopy (10/30/19) Diverticulosis and 2 polyps transverse colon History of esophagogastroduodenoscopy (EGD) (~2014) S/P lumpectomy, right breast Status post laser cataract surgery of both eyes Family History Denies family history of Anesthesia complication Bleeding disorder Social History Smoking and tobacco/nicotine status: never used tobacco/nicotine Alcohol intake: never Substance/Drug Use: never Physical Exam Narrative: EXAM NARRATIVE: General: Alert, no acute distress. Skin: Warm, dry. Head: Normocephalic, atraumatic. Neck: Supple, trachea midline. Eye: Extraocular movements are intact. Ears, nose, mouth and throat: mucosa moist. Cardiovascular: Regular, Normal peripheral perfusion. Respiratory: Lungs are clear to auscultation, respirations are non-labored, breath sounds are equal, Symmetrical chest wall expansion. Gastrointestinal: Soft, Nontender, Non distended Musculoskeletal: Normal ROM, no deformity. Neurological: Alert and oriented, No focal neurological deficit observed. Psychiatric: Cooperative, appropriate mood & affect. Course Vital Signs: Vital signs: Vital Signs Temperature 97.9 F 08/18/24 20:44 Pulse Rate 76 08/18/24 20:44 Respiratory Rate 16 08/18/24 20:44 Blood Pressure 174/81 08/18/24 20:44 Pulse Oximetry 98 08/18/24 20:44 Oxygen Delivery Me thod Room Air 08/18/24 20:44 MDM - General Adult Medical Decision Making Medical decision making: Differential diagnosis including but not limited to and based on the above HPI, review of systems and physical exam: Patient presents with hypertension: Essential hypertension. Stroke. acute coronary syndrome. kidney failure. congestive heart failure. anxiety Orders placed to evaluate differential diagnosis based on the above differential, HPI and physical exam EKG: Time 2051. Rate 68. Normal sinus rhythm, No ST-T changes, no ectopy, normal [place] & QRS intervals, This was reviewed and interpreted by myself the ER physician at 2057 Repeat EKG: Time 1:28 AM. Rate 67. Normal sinus rhythm, No ST-T changes, no ectopy, normal [place] & QRS intervals, This was reviewed and interpreted by myself the ER physician at 1:31 AM. No significant changes from EKG done previously today in the emergency room. CT head: No acute intracranial process. no intracranial hemorrhage, no evidence of infarct. no evidence of acute fracture.This was reviewed and interpreted by myself the ER physician. Chest x-ray: No acute process. No infiltrate. No pneumothorax. This was reviewed and interpreted by myself the emergency room physician. I also reviewed the radiology report. Lab Review: Laboratory results were reviewed and interpreted by myself the emergency room physician. No leukocytosis. No anemia. No renal failure. Urinalysis is negative for infection. Initial troponin was slightly above normal at 20. Repeat had a significant delta of 26 with a 2-hour troponin being 46. I reviewed the patient's medical record. Reexamination: Patient remained stable. No increased work of breathing. No altered mental status. No focal motor deficits. She continues to deny chest pain. Just the weird feeling she was having earlier. Blood pressure is down to 164/69 at admission. Consultation: I spoke with Dr. Xiong who is on-call for the hospitalist service who agrees to admission to observation. Assessment and plan: Elevated troponin Accelerated hypertension Vision changes -I discussed the patient with the hospitalist on-call who is admitting the patient. - Discussed findings and plan with patient. Answered any questions. - All laboratory values were reviewed and interpreted personally by myself, the ER physician - All imaging was reviewed and interpreted personally by myself, the ER physician. - Evaluation and treatment of this problem were appropriate in the emergency setting Lab Data 08/18/24 21:44 08/18/24 21:44 Radiology Impressions Chest X-Ray 08/18/24 20:55 IMPRESSION: 1. Minimally displaced fracture of the surgical neck of the left humeral head. No dislocation. 2. Left basal atelectasis. Head CT 08/18/24 20:55 IMPRESSION: No acute intracranial abnormality. Laboratory Results WBC 9.97 10^3/uL (3.29-11.43) 08/18/24 21:44 RBC 3.99 10^6/uL (3.85-5.65) 08/18/24 21:44 Hgb 12.00 g/dL (11.27-16.99) 08/18/24 21:44 Hct 37.1 % (36-47) 08/18/24 21:44 MCV 93.0 fl (85-98) 08/18/24 21:44 MCH 30.1 pg (27-33) 08/18/24 21:44 MCHC 32.3 g/dL (30-55) 08/18/24 21:44 RDW 13.6 % (12.1-15.1) 08/18/24 21:44 Plt Count 229 10^3/cmm (157-399) 08/18/24 21:44 MPV 9.7 fL (7.4-10.4) 08/18/24 21:44 Neut % (Auto) 71.9 % 08/18/24 21:44 Lymph % (Auto) 22.2 % 08/18/24 21:44 [place] % (Auto) 4.7 % 08/18/24 21:44 Eos % (Auto) 0.3 % 08/18/24 21:44 Baso % (Auto) 0.6 % 08/18/24:44 Neut # (Auto) 7.17 10^3/uL (1.8-7.7) 08/18/24:44 Lymph # (Auto) 2.2 10^3/uL (0.8-4.8) 08/18/24 21:44 [place] # (Auto) 0.5 10^3/uL (0.2-0.9) 08/18/24:44 Eos # (Auto) 0.0 10^3/uL (0.0-0.8) 08/18/24:44 Baso # (Auto) 0.1 10^3/uL (0.0-0.1) 08/18/24:44 Nucleated RBC % (auto) 0 % 08/18/24:44 Nucleated RBCs # 0.0 /100WBC 08/18/24 21:44 Sodium 134 mmol/L (136-145) L 08/18/24 21:44 Potassium 4.4 mmol/L (3.5-5.1) 08/18/24:44 Chloride 99 mmol/L (98-107) 08/18/24 21:44 Carbon Dioxide 21 mmol/L (22-29) L 08/18/24 21:44 Anion Gap 18.4 (5-19) 08/18/24 21:44 BUN 18 mg/dL (8-23) 08/18/24 21:44 Creatinine 0.9 mg/dL (0.5-0.9) 08/18/24 21:44 GFR Calculation Not Reportable 08/18/24 21:44 Glucose 144 mg/dL (65-115) H 08/18/24 21:44 Calculated Osmolality 282 mOsm/kg (285-295) L 08/18/24 21:44 Calcium 9.5 mg/dL (8.5-10.5) 08/18/24 21:44 Total Bilirubin 0.4 mg/dL (0.15-1.2) 08/18/24 21:44 AST 25 U/L (0-32) 08/18/24 21:44 ALT 21 U/L (0-33) 08/18/24 21:44 Alkaline Phosphatase 60 U/L (35-105) 08/18/24 21:44 Troponin T Baseline 20 ng/L (0-10) H 08/18/24 21:44 Troponin T 120 Minute 45.94 ng/L (0-10) H 08/19/24 00:26 Delta Troponin T 25.94 ABS# (0-10) H* 08/19/24 00:26 NT-Pro-B Natriuret Pep 101 pg/mL (0-450) 08/18/24 21:44 Total Protein 7.4 g/dL (6.6-8.7) 08/18/24 21:44 Albumin 4.2 g/dL (3.5-5.2) 08/18/24 21:44 Globulin 3.2 g/dL (1.3-4.6) 08/18/24 21:44 Urine Color Yellow (Yellow) 08/19/24 00:58 Urine Appearance Clear (CLEAR) 08/19/24 00:58 Urine pH 7.5 (5-7) 08/19/24 00:58 Ur Specific [place] 1.005 (1.005-1.030) 08/19/24 00:58 Urine Protein Negative (Negative) 08/19/24 00:58 Urine Glucose (UA) Negative (Normal) 08/19/24 00:58 Urine Ketones Negative (Negative) 08/19/24 00:58 Urine Blood Trace (Negative) A 08/19/24 00:58 Urine Nitrate Negative (Negative) 08/19/24 00:58 Urine Bilirubin Negative (Negative) 08/19/24 00:58 Urine Urobilinogen 0.2 mg/dL (Negative) 08/19/24 00:58 Ur Leukocyte Esterase Negative (Negative) 08/19/24 00:58 Urine RBC 0-4 /hpf (0-2) H 08/19/24 00:58 Urine WBC 0-4 /hpf (0-5) H 08/19/24 00:58 Ur Squamous Epith Cells None /hpf (0-5) 08/19/24 00:58 Amorphous Sediment Not Reportable 08/19/24 00:58 Urine Bacteria None /hpf (NONE) 08/19/24 00:58 All radiology interpretation(s) finalized by discharge Discharge Plan Discharge Patient Disposition: Placed in Observation Clinical Impression: Accelerated hypertension, Elevated troponin Coding Level of Care Code ED Theater Teacher for Destini Sharpe
[2024-08-19 01:04] LABS: Bilirubin Urine Negative (Negative); Blood Urine Trace (Negative); Glucose Urine UA Negative (Normal); Ketones Urine Negative (Negative); Leukocyte Esterase Urine Negative (Negative); Nitrate Urine Negative (Negative); Protein Urine Negative (Negative); Specific Gravity, Urine 1.005 (1.005-1.030); Urine Appearance Clear (CLEAR); Urine Color Yellow (Yellow); Urobilinogen Urine 0.2 mg/dL (Negative); pH Urine 7.5 (5-7)
[2024-08-19 01:06] LABS: Troponin 5 2HR 45.94 ng/L (0-10)
[2024-08-19 01:08] LABS: Troponin 5 2HR Delta 25.94 ABS# (0-10)
[2024-08-19 01:18] LABS: RBC Urine 0-4 /hpf (0-2); WBC Urine 0-4 /hpf (0-5)
--- NOTE | 2024-08-19 01:28 | ECG_ITS ---
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
--- NOTE | 2024-08-19 02:02 | P.HP_ITS ---
Providers/Chief Complaint 2 Primary Care Provider: Gonzalo Jeter DO Chief Complaint: Very High BP History of Present Illness Anjelica Newell is a 84 year old female with history of hypertension, hypothyroidism presented with chief complaint of left-sided blurry vision. Patient is stating that she was experiencing blurry vision of the left side since Sunday, today it got worse and decided to come to the hospital, in the ER she was diagnosed with hypertension, second hour delta troponin was significant hence hospitalist was asked to admit the patient, patient is chest pain-free EKG not showing any ischemic intraoperative changes, she is hemodynamically stable. Blood pressure normally stays between 1 10-1 20s at home, patient lives in an apartment very active for her age, she walked 1-1/2 miles in the morning today. No previous history of [place] or coronary disease. No history of stroke. She is compliant with her medications. Patient never had detailed retinal exam as well. Review of Systems 2 Const: Denies: fever(s) Eyes: Reports: change in vision and blurry vision ENMT: Denies: throat pain Card: Denies: chest pain Resp: Denies: dyspnea GI: Denies: abdominal pain : Denies: flank pain Musc: Reports: back pain Skin/Breast: Denies: rash Medications/Allergies Home Medications ?Medication ?Instructions ?Recorded ?Confirmed ?Last Taken ?Type levothyroxine 25 mcg tablet 25 mcg PO DAILY 09/10/19 0 07/11/22 10/29/19 20:00 History (Levoxyl) pravastatin 40 mg tablet 40 mg PO DAILY 09/10/1906/2510/29/19 20:00 History losartan 50 mg tablet 50 mg PO BEDTIME 10/29/1910/29/19 20:00 History amlodipine 5 mg tablet 5 mg PO DAILY #30 tabs 03/29 Unknown Rx metoprolol succinate 25 mg 12.5 mg (1/2 x 25 mg) PO DA SYLVESTER #15 03/29/23 Unknown Rx tablet,extended release 24 hr tabs (Toprol XL) Allergies Allergy/AdvReac Type Severity Reaction Status Date / Time No Known Allergies Allergy Verified 08/18/24 20:50 PFSH Acute 2 PFSH: Medical History History of nonmelanoma skin cancer Hyperlipidemia Hypertension Hiatal hernia History of colon polyps 2020: Tubular adenoma Surgical History S/P lumpectomy, right breast History of arthroplasty of finger of left hand Status post laser cataract surgery of both eyes History of esophagogastroduodenoscopy (EGD) (~2014) History of colonoscopy (10/30/19) Diverticulosis and 2 polyps transverse colon Family History Denies family history of Anesthesia complication Bleeding disorder Social History Smoking and tobacco/nicotine status: never used tobacco/nicotine Alcohol intake: never Substance/Drug Use: never Vitals/I&O/Wt Last Vital Signs Temp 97.9 F 08/18/24 20:44 Pulse 76 08/18/24 20:44 Resp 16 08/18/24 20:44 BP 174/81 08/18/24 20:44 Pulse Ox 98 08/18/24 20:44 O2 Del Method Room Air 08/18/24 20:44 Weight last 48 hrs Weight 56.699 kg Physical Exam 2 Narrative: Awake and alert GCS 15 Nonfocal neuroexam No sign of meningitis GCS 15 S1, S2 and hypertensive No active chest pain Currently doing well on room air Euvolemic Pleasant and cooperative No active discomfort at all Data 08/18/24 21:44 08/18/24 21:44 A&P Assessment and plan (1) Accelerated hypertension: (2) Elevated troponin: (3) Blurry vision: Plan Left-sided blurry vision since Sunday No active focal deficit Will request CTA head and neck CT head unremarkable Check hemoglobin A1c Patient never had a retinal detail exam Delta troponin is significant No active chest pain EKG not show any ischemic or infarctive changes Patient walked 1-1/2 miles yesterday morning without any difficulty Will request echo, further plan will be made after reviewing 6-hour troponin and echo No plan to do stress test at this point Hypertensive urgency: Increase the dose amlodipine to 10 mg, increase dose of losartan to 100 mg and continue metoprolol I will check her TSH, B12 and hemoglobin A1c Keep her on cardiac diet Full code PDMP PDMP Reviewed: Not Reviewed Attestations 2 Medical Necessity Statement*: Anticipating discharge within 48 hours Diagnoses Accelerated hypertension I10 Elevated troponin R79.89 Blurry vision H53.8
--- NOTE | 2024-08-19 02:04 | USCV_ITS ---
Anjelica Newell Age: 84 Gender: F : 1940 Exam Date: 08/19/2024 03:01 Ordering Phys: Andrey Xiong MD Technologist: CONNOR [place] [facility] [place]: Chest pain, history of HTN BP: 174 / 81 HR: 60 Rhythm: Sinus Technical Quality: Adequate MEASUREMENTS (Male / Female) Normal Values 2D ECHO LV Diastolic Diameter PLAX 3.2 cm 4.2 - 5.9 / 3.9 - 5.3 cm IVS Diastolic Thickness 1.8 cm 0.6 - 1.0 / 0.6 - 0.9 cm IVS Systolic Thickness 1.7 cm LVPW Diastolic Thickness 1.5 cm 0.6 - 1.0 / 0.6 - 0.9 cm LVPW Systolic Thickness 1.4 cm LVOT Diameter 1.8 cm LV Ejection Fraction 2D Teich 58.8 % LV Ejection Fraction MOD 4C 65.2 % LV Ejection Fraction MOD 2C 59.3 % LV Ejection Fraction 2C AL 59.2 % LA Diameter 2.7 cm Aorta at Sinotubular Diameter 2.7 cm IVC Diameter 1.2 cm M-MODE LA Ao Ratio MM 1.5 AV Cusp Separation MM 1.6 cm DOPPLER AV Peak Velocity 167.0 cm/s LVOT Peak Velocity 93.0 cm/s AV Area Cont Eq vti 1.9 cm squared AV Area Cont Eq pk 1.4 cm squared MV Peak Velocity 124.0 cm/s MV Area PHT 3.2 cm squared Mitral E to A Ratio 0.6 TV Peak Velocity 278.3 cm/s TR Peak Velocity 283.0 cm/s TR Peak Gradient 32.0 mmHg TV Peak E Velocity 40.0 cm/s PV Peak Velocity 97.0 cm/s FINDINGS Left Ventricle Normal left ventricular size, systolic function and wall thickness, with no regional wall motion abnormalities. Left ventricular ejection fraction is estimated at 60 %. Grade I/IV diastolic dysfunction (abnormal relaxation filling pattern), normal to mildly elevated filling pressures. Right Ventricle The right ventricle is normal in size and function. Right Atrium The right atrium is normal in size. Left Atrium The left atrium is normal in size. Mitral Valve Mildly thickened mitral valve. Mitral annular calcification. No mitral valve stenosis. Mild mitral valve regurgitation. Aortic Valve Moderate aortic valve calcification. No aortic valve stenosis. No aortic valve regurgitation. Tricuspid Valve Mild to moderate tricuspid valve regurgitation. Pulmonic Valve Structurally normal pulmonic valve without significant stenosis. There is no pulmonic regurgitation. Pericardium Normal pericardium without effusion. Aorta Normal ascending aorta dimension. IVC The inferior vena cava appears normal. CONCLUSIONS Normal left ventricular size, systolic function and wall thickness, with no regional wall motion abnormalities. Left ventricular ejection fraction is estimated at 60 %. Grade I/IV diastolic dysfunction (abnormal relaxation filling pattern), normal to mildly elevated filling pressures. Mildly thickened mitral valve. Mitral annular calcification. No mitral valve stenosis. Mild mitral valve regurgitation. Moderate aortic valve calcification. No aortic valve stenosis. No aortic valve regurgitation. Mild to moderate tricuspid valve regurgitation. There is no pericardial effusion. Right atrial pressure is around 5 mm of mercury. Andrey Casas MD (Electronically Signed) Final Date: 19 August 2024 10:22 S
--- NOTE | 2024-08-19 02:07 | CTR_ITS ---
PROCEDURE INFORMATION: Exam: CTA Head With Contrast, Arteriography Exam date and time: 08/19/2024 2:22 AM Age: 84 years old Clinical indication: Headache and visual disturbance; Other visual defect; Additional info: Blurry vision TECHNIQUE: Imaging protocol: Computed tomographic angiography of the head with contrast. Exam focused on the arteries. 3D rendering (Not supervised by radiologist): MIP and/or 3D reconstructed images were created by the technologist. Radiation optimization: All CT scans at this facility use at least one of these dose optimization techniques: automated exposure control; mA and/or kV adjustment per patient size (includes targeted exams where dose is matched to clinical indication); or iterative reconstruction. Contrast material: OMNI; Contrast volume: 75 ml; Contrast route: INTRAVENOUS (IV); COMPARISON: CT head wo con* [id number] 08/18/2024 10:03 PM RADIATION DOSE METRICS: Total DLP (mGy-cm): 1056.34 FINDINGS: ANTERIOR CIRCULATION: Right internal carotid artery: Intracranial segment is patent with no significant stenosis. No aneurysm. Right middle cerebral artery: No occlusion or significant stenosis. No aneurysm. Right anterior cerebral artery: No occlusion or significant stenosis. No aneurysm. Left internal carotid artery: Intracranial segment is patent with no significant stenosis. No aneurysm. Left middle cerebral artery: No occlusion or significant stenosis. No aneurysm. Left anterior cerebral artery: No occlusion or significant stenosis. No aneurysm. POSTERIOR CIRCULATION: Right vertebral artery: No occlusion or significant stenosis. No aneurysm. 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 Basilar artery: No occlusion or significant stenosis. No aneurysm. Right posterior cerebral artery: No occlusion or significant stenosis. No aneurysm. Left posterior cerebral artery: No occlusion or significant stenosis. No aneurysm. Brain: Age appropriate atrophy and small vessel ischemic change. No evidence of intracranial hemorrhage, mass effect, midline shift or extra-axial fluid collections. Midline structures are normal. Morrow-white matter differentiation is normal. Cerebral ventricles: No ventriculomegaly. Bones/joints: Unremarkable. No acute fracture. Soft tissues: Unremarkable. PROCEDURE INFORMATION: Exam: CTA Neck With Contrast Exam date and time: 08/19/2024 2:22 AM Age: 84 years old Clinical indication: Headache and visual disturbance; Other visual defect; Additional info: Blurry vision TECHNIQUE: Imaging protocol: Computed tomographic angiography of the neck with contrast. Exam focused on the cervical segments of the vasculature. 3D rendering (Not supervised by radiologist): MIP and/or 3D reconstructed images were created by the technologist. Radiation optimization: All CT scans at this facility use at least one of these dose optimization techniques: automated exposure control; mA and/or kV adjustment per patient size (includes targeted exams where dose is matched to clinical indication); or iterative reconstruction. Contrast material: OMNI 350; Contrast route: INTRAVENOUS (IV); COMPARISON: CT head wo [place]* [id number] 08/18/2024 10:03 PM RADIATION DOSE METRICS: Total DLP (mGy-cm): 0.01 FINDINGS: Right common carotid artery: No stenosis. No dissection or occlusion. Right internal carotid artery: No stenosis of the extracranial segment. No dissection or occlusion. Right external carotid artery: No occlusion or stenosis of the origin. Left common carotid artery: No stenosis. No dissection or occlusion. Left internal carotid artery: No stenosis of the extracranial segment. No dissection or occlusion. Left external carotid artery: No occlusion or stenosis of the origin. Right vertebral artery: No stenosis. No dissection or occlusion. Left vertebral artery: Normal variant origin of the left vertebral artery from the aortic arch. Soft tissues: Normal. No significant soft tissue swelling. Bones/joints: No acute fracture. CT/CT angio headneck* [id number] IMPRESSION: No acute vascular abnormality. IMPRESSION: No acute vascular abnormality. REFERENCES: NASCET CRITERIA. The degree of stenosis in the cervical segment of the internal carotid artery is based on NASCET criteria. Normal is no stenosis. Mild is less than 50% stenosis. Moderate is 50-69% stenosis. Severe is 70% to 99% stenosis. Total occlusion is no detectable patent lumen.
[2024-08-19] MEDS: iohexol 350 mg/mL 500 mL Btl (per mL) IV (02:37)
[2024-08-19 04:08] LABS: Magnesium 2.3 mg/dL (1.7-2.3)
[2024-08-19 04:10] LABS: Troponin 5 6HR 48.74 ng/L (0-10)
[2024-08-19 04:20] LABS: Estmated Average Glucose 120; Hemoglobin A1C 5.8 % (4.0-6.0)
[2024-08-19 04:23] LABS: Troponin 5 6HR Delta 28.74 ng/L (0-12)
[2024-08-19 04:29] LABS: Thyroid Stimulating Hormone 2.74 uIU/mL (0.27-4.20); Vitamin B12 908 pg/mL (232-1245)
[2024-08-19] MEDS: levothyroxine 25 mcg Tablet PO (07:42)
[2024-08-19] MEDS: metoprolol succinate ER (24 HR) 25 mg Tablet 12.5 MG PO (08:19)
[2024-08-19] MEDS: aspirin 81 mg EC Tablet PO (08:19)
[2024-08-19] MEDS: enoxaparin 40 mg/0.4 mL Syringe SUBCUT (08:20)
--- NOTE | 2024-08-19 09:51 | P.DS_ITS ---
Discharge Providers Date of Admission: 08/19/24 02:04 Date of Discharge: August 19, 2024 Attending Provider at Admission: Andrey Xiong MD Attending Provider at Discharge: Leroy Eng MD Primary Care Provider: Gonzalo Jeter DO Diagnoses at Discharge Discharge Diagnosis (1) Accelerated hypertension: Status: Acute (2) Elevated troponin: Status: Acute (3) Blurry vision: Status: Acute Reason for Visit Reason for Visit: Very High BP Hospital Course Hospital Course Anjelica Newell is a 84 year old female with history of hypertension, hypothyroidism presented with chief complaint of left-sided blurry vision, initially found to have severe elevated blood pressures. She was admitted to observation and blood pressure medications were titrated. Blood pressure improved. Symptoms resolved. She was found to have elevated troponin without any evidence of ischemic symptoms. Denies prior cardiac history. Troponin leak likely secondary to severely elevated blood pressures. CT head and CTA head and neck were negative for acute findings. Patient was counseled on home blood pressure log. Her amlodipine dosing was adjusted. He is advised to follow-up with her eye provider. She will also follow-up with her PCP within 1 week for ongoing care. Patient discharged home with family in stable condition. Physical Exam Narrative: General: Patient is awake and alert. Head: Normocephalic. Atraumatic. EOM intact. Neck: No JVD. Cardiovascular: RRR. No gallops. No murmurs. No peripheral edema. Lungs: Clear to auscultation, no use of accessory muscles, no crackles or wheezes. Skin: No jaundice. No rashes. Abdomen: Normal bowel sounds, abdomen soft and nontender. Genito Urinary: Genital exam not performed since complaints not related. Rectal: Rectal exam not performed since no symptoms indicated blood loss. Extremities: No cyanosis or clubbing. Musculoskeletal: 5/5 strength, normal range of motion, no swollen or erythematous joints. Neurological: Moves all 4 extremities. No myoclonus. Discharge Data Studies Completed and Pending Completed Studies During Hospitalization Category Date Time Status CT head wo con* [id number] Stat Cat Scan 08/18/24 20:55 Completed CTA head neck [CT angio headneck* [id number]] Routine Cat Scan 08/19/24 02:07 Completed XR chest 1V portable [id number] Stat Exams 08/18/24 20:55 Completed Pending at discharge Category Date Time Status CV. echo complete* [id number] Routine Ultrasound 08/19/24 02:04 Taken Radiology Impressions Chest X-Ray 08/18/24 20:55 IMPRESSION: 1. Minimally displaced fracture of the surgical neck of the left humeral head. No dislocation. 2. Left basal atelectasis. Head CT 08/18/24 20:55 IMPRESSION: No acute intracranial abnormality. Head/Neck CTA 08/19/24 02:07 IMPRESSION: No acute vascular abnormality. IMPRESSION: No acute vascular abnormality. REFERENCES: NASCET CRITERIA. The degree of stenosis in the cervical segment of the internal carotid artery is based on NASCET criteria. Normal is no stenosis. Mild is less than 50% stenosis. Moderate is 50-69% stenosis. Severe is 70% to 99% stenosis. Total occlusion is no detectable patent lumen. Laboratory Results WBC 9.97 10^3/uL (3.29-11.43) 08/18/24 21:44 RBC 3.99 10^6/uL (3.85-5.65) 08/18/24 21:44 Hgb 12.00 g/dL (11.27-16.99) 08/18/24 21:44 Hct 37.1 % (36-47) 08/18/24 21:44 MCV 93.0 fl (85-98) 08/18/24 21:44 MCH 30.1 pg (27-33) 08/18/24 21:44 MCHC 32.3 g/dL (30-55) 08/18/24 21:44 RDW 13.6 % (12.1-15.1) 08/18/24 21:44 Plt Count 229 10^3/cmm (157-399) 08/18/24 21:44 MPV 9.7 fL (7.4-10.4) 08/18/24 21:44 Neut % (Auto) 71.9 % 08/18/24 21:44 Lymph % (Auto) 22.2 % 08/18/24 21:44 [place] % (Auto) 4.7 % 08/18/24 21:44 Eos % (Auto) 0.3 % 08/18/24 21:44 Baso % (Auto) 0.6 % 08/18/24 21:44 Neut # (Auto) 7.17 10^3/uL (1.8-7.7) 08/18/24 21:44 Lymph # (Auto) 2.2 10^3/uL (0.8-4.8) 08/18/24 21:44 [place]ing # (Auto) 0.5 10^3/uL (0.2-0.9) 08/18/24 21:44 Eos # (Auto) 0.0 10^3/uL (0.0-0.8) 08/18/24 21:44 Baso # (Auto) 0.1 10^3/uL (0.0-0.1) 08/18/24 21:44 Nucleated RBC % (auto) 0 % 08/18/24 21:44 Nucleated RBCs # 0.0 /100WBC 08/18/24 21:44 Sodium 134 mmol/L (136-145) L 08/18/24 21:44 Potassium 4.4 mmol/L (3.5-5.1) 08/18/24 21:44 Chloride 99 mmol/L (98-107) 08/18/24 21:44 Carbon Dioxide 21 mmol/L (22-29) L 08/18/24 21:44 Anion Gap 18.4 (5-19) 08/18/24 21:44 BUN 18 mg/dL (8-23) 08/18/24 21:44 Creatinine 0.9 mg/dL (0.5-0.9) 08/18/24 21:44 GFR Calculation Not Reportable 08/18/24 21:44 Glucose 144 mg/dL (65-115) H 08/18/24 21:44 Estimat Average Glucose 120 08/19/24 03:46 Hemoglobin A1c 5.8 % (4.0-6.0) 08/19/24 03:46 Calculated Osmolality 282 mOsm/kg (285-295) L 08/18/24 21:44 Calcium 9.5 mg/dL (8.5-10.5) 08/18/24 21:44 Magnesium 2.3 mg/dL (1.7-2.3) 08/19/24 03:46 Total Bilirubin 0.4 mg/dL (0.15-1.2) 08/18/24 21:44 AST 25 U/L (0-32) 08/18/24 21:44 ALT 21 U/L (0-33) 08/18/24 21:44 Alkaline Phosphatase 60 U/L (35-105) 08/18/24 21:44 Troponin T Baseline 20 ng/L (0-10) H 08/18/24 21:44 Troponin T 120 Minute 45.94 ng/L (0-10) H 08/19/24 00:26 Delta Troponin T 25.94 ABS# (0-10) H* 08/19/24 00:26 Troponin T Hi Sens 6Hr 48.74 ng/L (0-10) H 08/19/24 03:46 Troponin T Hi Sens 6Hr Delta 28.74 ng/L (0-12) H* 08/19/24 03:46 NT-Pro-B Natriuret Pep 101 pg/mL (0-450) 08/18/24 21:44 Total Protein 7.4 g/dL (6.6-8.7) 08/18/24 21:44 Albumin 4.2 g/dL (3.5-5.2) 08/18/24 21:44 Globulin 3.2 g/dL (1.3-4.6) 08/18/24 21:44 Vitamin B12 908 pg/mL (232-1245) 08/19/24 03:46 TSH 2.74 uIU/mL (0.27-4.20) 08/19/24 03:46 Urine Color Yellow (Yellow) 08/19/24 00:58 Urine Appearance Clear (CLEAR) 08/19/24 00:58 Urine pH 7.5 (5-7) 08/19/24 00:58 Ur Specific [place] 1.005 (1.005-1.030) 08/19/24 00:58 Urine Protein Negative (Negative) 08/19/24 00:58 Urine Glucose (UA) Negative (Normal) 08/19/24 00:58 Urine Ketones Negative (Negative) 08/19/24 00:58 Urine Blood Trace (Negative) A 08/19/24 00:58 Urine Nitrate Negative (Negative) 08/19/24 00:58 Urine Bilirubin Negative (Negative) 08/19/24 00:58 Urine Urobilinogen 0.2 mg/dL (Negative) 08/19/24 00:58 Ur Leukocyte Esterase Negative (Negative) 08/19/24 00:58 Urine RBC 0-4 /hpf (0-2) H 08/19/24 00:58 Urine WBC 0-4 /hpf (0-5) H 08/19/24 00:58 Ur Squamous Epith Cells None /hpf (0-5) 08/19/24 00:58 Amorphous Sediment Not Reportable 08/19/24 00:58 Urine Bacteria None /hpf (NONE) 08/19/24 00:58 Vitals Last Vital Signs Temp 98.1 F 08/19/24 08:58 Pulse 65 08/19/24 09:20 Resp 16 08/19/24 09:20 BP 165/74 08/19/24 08:58 Pulse Ox 98 08/19/24 09:20 O2 Del Method Room Air 08/19/24 09:20 Discharge Plan Discharge Patient Disposition: Home Condition: Stable Prescriptions: Continued pravastatin 40 mg tablet 40 mg PO DAILY levothyroxine [Levoxyl] 25 mcg tablet 25 mcg PO DAILY valsartan 320 mg tablet 320 mg PO DAILY Changed amlodipine 2.5 mg tablet 5 mg PO DAILY 5 Days Qty: 30 1RF Discharge Orders: Discharge Order (Routine); Ordered 08/19/24 Ordered By: Leroy Eng Referrals: Gonzalo Jeter DO [Primary Care Provider] - 08/26/24 9:00 am (with [facility] Sarah Urbina ) Discharge Diet: Cardiac and Low Salt Discharge Activity: Resume usual activity and Increase activity as tolerated Patient Instructions: Amlodipine (By mouth), Hypertension (GEN), Opioid Safety Plan of Treatment: 1. Take medications as prescribed. 2. Keep home blood pressure log. Bring to PCP follow-up. 3. Follow-up with your eye provider. 4. Patient was heavily counseled on return precautions. Discharge Attestations Time Spent in Discharge Care*: greater than 30 min Quality Metrics Clinical Quality Measures [ No reported AMI, CVA or VTE this stay] Coding Level of Care Code Acute Code for Chg Fwd Diagnoses Accelerated hypertension I10 Elevated troponin R79.89 Blurry vision H53.8
--- NOTE | 2024-08-19 11:49 | PC.NURSE ---
Discharged patient. IV removed. Reviewed medication changes and upcoming appointments with the patient. patient signature form signed.
== END 2024-08-19 11:40 | disposition home or self-care (01) ==
LOC: ER 08-19 02:10 → MEDSURG 08-19 05:29
PROVIDERS: Admitting Provider Internal Medicine; Emergency Provider Emergency Medicine; PCP Electrodiagnostic Medicine; Visit Provider Internal Medicine
DX: I16.0 Hypertensive urgency (principal); I10 Essential (primary) hypertension; E03.9 Hypothyroidism, unspecified; H53.8 Other visual disturbances; Z79.890 Hormone replacement therapy; Z79.899 Other long term (current) drug therapy; Z85.820 Personal history of malignant melanoma of skin; E78.5 Hyperlipidemia, unspecified; Z86.0101 Personal history of adenomatous and serrated colon polyps; R79.89 Other specified abnormal findings of blood chemistry
CPT/HCPCS: 36415; 70450; 70496; 70498; 71045; 80053; 81001; 82607; 83036; 83735; 83880; 84443; 84484; 85025; 93005; 93306; 96372; 99285; G0378; J1650

== ENCOUNTER → 2024-12-09 10:28 | Outpatient (BNVA) | payer MEDICARE, SELFPAY | PROVIDERS: PCP Electrodiagnostic Medicine; Visit Provider Nurse Practitioner Family | DX: L81.4 Other melanin hyperpigmentation (principal); L57.8 Other skin changes due to chronic exposure to nonionizing radiation; X32.XXXA Exposure to sunlight, initial encounter; L57.0 Actinic keratosis; Z08 Encounter for follow-up examination after completed treatment for malignant neoplasm; Z85.828 Personal history of other malignant neoplasm of skin; D48.5 Neoplasm of uncertain behavior of skin | CPT/HCPCS: 11102; 17000; 99213 ==

== ENCOUNTER → 2025-04-06 08:41 | Outpatient (BNVA) | payer MEDICARE, SELFPAY | PROVIDERS: PCP Electrodiagnostic Medicine; Visit Provider Nurse Practitioner Family | DX: L73.8 Other specified follicular disorders (principal); L72.0 Epidermal cyst; L81.4 Other melanin hyperpigmentation; I83.91 Asymptomatic varicose veins of right lower extremity; L57.8 Other skin changes due to chronic exposure to nonionizing radiation; X32.XXXA Exposure to sunlight, initial encounter; L57.0 Actinic keratosis; Z08 Encounter for follow-up examination after completed treatment for malignant neoplasm; Z85.828 Personal history of other malignant neoplasm of skin | CPT/HCPCS: 99213 ==